=== PATIENT | female | born 1950 | race African-American/Black ===

== ENCOUNTER 2017-03-22 13:39 | Inpatient (IN) | payer OTHER ==
[~2017-03-22] VITALS: Ht 154.9 cm; Wt 52.8 kg
[2017-03-22 14:47] LABS: Basophils # (auto) 0 uL; Basophils % (auto) 0.3 % (0.0-2.0); CONDITION Y; Eosinophils # (auto) 0.1 uL; Eosinophils % (auto) 1.1 % (0.0-7.0); Hematocrit 44.7 % (36.0-46.0); Hemoglobin 15.6 g/dL (12.2-16.2); Lymphocytes # (auto) 4.4 uL; Lymphocytes % (auto) 35.9 % (10.0-50.0); Mean Corpuscular Hemoglobin 30.8 pg (28.0-32.0); Mean Corpuscular Hgb Conc. 34.9 g/dL (32.0-36.0); Mean Corpuscular Volume 88.3 fL (80.0-100.0); Mean Platelet Volume 6.9 fL (7.4-10.4); Monocytes # (auto) 0.9 uL; Monocytes % (auto) 7.2 % (0.0-12.0); Neutrophils # (auto) 6.8 uL; Neutrophils % (auto) 55.5 % (37.0-80.0); Platelet Count (auto) 486 10^3/uL (140-450); Red Cell Distribution Width 14.1 % (11.6-16.0); White Blood Cell 12.2 10^3/uL (4.4-10.8)
[2017-03-22 15:00] LABS: INR 0.9 (0.9-1.15); Partial Thromboplastin Time 25.3 sec (22.64-33.71); Prothrombin Time 9.8 sec (9.37-12.3)
[2017-03-22 15:26] LABS: Albumin 2.9 g/dL (3.4-5.0); BUN/Creatinine Ratio 12.9; Bilirubin, Total 0.3 mg/dL (0.2-1.0); Calcium 8.1 mg/dL (8.5-10.1)
[2017-03-22 15:27] LABS: Potassium 2.7 mmol/L (3.5-5.1)
[2017-03-22] MEDS ORDERED: POTASSIUM CHL 20 Meq TABLET PO ONE (15:30)
[2017-03-22] MEDS ORDERED: SODIUM CHLORIDE 0.9% 1,000 ML IVB ONE (16:51)
[2017-03-22 17:35] LABS: Magnesium 2.3 mg/dL (1.6-2.6)
[2017-03-22] MEDS ORDERED: MORPHINE SULF INJ 2 MG/ML SYRINGE 1ML IV ONE (18:00)
[2017-03-22] MEDS ORDERED: ONDANSETRON HCL 4 MG/2 ML VIAL IV ONE (18:00)
[2017-03-22] MEDS ORDERED: POTASSIUM CHL 20MEQ/100ML 100 ML IV ONE (20:30)
[2017-03-22] MEDS ORDERED: TEMAZEPAM 15 MG CAP PO PRN (22:00)
[2017-03-22] MEDS ORDERED: PANTOPRAZOLE SODIUM 40 MG/10 ML VIAL IV ONE (22:00)
[2017-03-22 22:26] LABS: Hematocrit 39.7 % (36.0-46.0); Hemoglobin 13.5 g/dL (12.2-16.2)
[2017-03-22] MEDS: LABETALOL HCL 200 MG TAB PO SCH (22:30)
[2017-03-22] MEDS: SODIUM CHLORIDE 0.9% 1,000 ML IV SCH (22:30)
[2017-03-22 23:25] VITALS: BP 105/61
[2017-03-23] VITALS (7 sets, daily range): BP systolic 74–113; BP diastolic 41–58
[2017-03-23] MEDS: ONDANSETRON HCL 4 MG/2 ML VIAL IV PRN ×3 (00:36→14:13)
[2017-03-23] MEDS: MORPHINE SULF INJ 2 MG/ML SYRINGE 1ML IV PRN ×3 (00:37→14:13)
[2017-03-23 06:30] LABS: Basophils # (auto) 0 uL; Basophils % (auto) 0.3 % (0.0-2.0); CONDITION Y; Eosinophils # (auto) 0.3 uL; Eosinophils % (auto) 3.2 % (0.0-7.0); Hematocrit 37.6 % (36.0-46.0); Hemoglobin 12.9 g/dL (12.2-16.2); Lymphocytes # (auto) 3.3 uL; Lymphocytes % (auto) 41.2 % (10.0-50.0); Mean Corpuscular Hemoglobin 30.8 pg (28.0-32.0); Mean Corpuscular Hgb Conc. 34.3 g/dL (32.0-36.0); Mean Corpuscular Volume 89.8 fL (80.0-100.0); Monocytes # (auto) 0.9 uL; Monocytes % (auto) 10.7 % (0.0-12.0); Neutrophils # (auto) 3.5 uL; Neutrophils % (auto) 44.6 % (37.0-80.0); Platelet Count (auto) 362 10^3/uL (140-450); Red Cell Distribution Width 14.4 % (11.6-16.0); White Blood Cell 7.9 10^3/uL (4.4-10.8)
[2017-03-23 06:46] LABS: Albumin 2.2 g/dL (3.4-5.0); BUN/Creatinine Ratio 7.2; Calcium 7.7 mg/dL (8.5-10.1)
[2017-03-23 06:49] LABS: Bilirubin, Total 0.7 mg/dL (0.2-1.0); Total Protein 4.7 g/dL (6.4-8.2)
[2017-03-23] MEDS: LABETALOL HCL 200 MG TAB PO SCH (09:35)
[2017-03-23] MEDS: ACETAMINOPHEN 325 MG TAB PO PRN ×2 (09:44→21:56)
[2017-03-23] MEDS: PANTOPRAZOLE 40 MG TAB PO SCH ×2 (10:00→21:56)
[2017-03-23] MEDS ORDERED: HCTZ 25 MG TAB PO SCH (10:00)
[2017-03-23] MEDS ORDERED: PANTOPRAZOLE SODIUM 40 MG/10 ML VIAL IV SCH (10:00)
[2017-03-23] MEDS ORDERED: amLODIPine BESYLATE 5 MG TAB PO SCH (10:00)
[2017-03-23] MEDS ORDERED: HYDR25TA4 PO (10:06)
[2017-03-23 10:26] LABS: Urine RBC None Seen /hpf (0 - 4)
[2017-03-23 10:41] LABS: Urine Bilirubin Negative (Negative); Urine Blood Negative /uL (Negative); Urine Color Yellow (Yellow); Urine Glucose Normal (Normal); Urine Ketone Negative (Negative); Urine Nitrite Negative (Negative); Urine Squamous Epithelial Cell FEW /hpf (<5); Urine Urobilinogen Normal (Negative)
[2017-03-23] MEDS ORDERED: SODIUM CHLORIDE 0.9% 250 ML IV ONE (12:15)
[2017-03-23] MEDS: SODIUM CHLORIDE 0.9% 1,000 ML IV SCH (14:28)
[2017-03-23] MEDS ORDERED: POTASSIUM CHL 20 Meq TABLET PO STA (16:48)
[2017-03-24] VITALS (7 sets, daily range): BP systolic 110–140; BP diastolic 60–92
[2017-03-24] MEDS: SODIUM CHLORIDE 0.9% 1,000 ML IV SCH ×2 (06:32→23:48)
[2017-03-24] MEDS: MORPHINE SULF INJ 2 MG/ML SYRINGE 1ML IV PRN ×2 (06:33→21:44)
[2017-03-24] MEDS ORDERED: diphenhdrAMINE HCL 50 MG/1 ML VL ONE (08:20)
[2017-03-24] MEDS ORDERED: SODIUM CHLORIDE LOCK 10 ML ONE (08:20)
[2017-03-24] MEDS ORDERED: LIDOCAINE VISCOUS 2% 15ML UD ONE (08:20)
[2017-03-24] MEDS: MIDAZOLAM HCL 5 MG/ML-1ML VIAL ONE ×2 (09:33→09:39)
[2017-03-24] MEDS: fentaNYL CITRATE 100 MCG/2 ML VL ONE ×2 (09:33→09:39)
[2017-03-24] MEDS ORDERED: GOLYTELY 4L KIT PO ONE (10:00)
[2017-03-24] MEDS: PANTOPRAZOLE 40 MG TAB PO SCH ×2 (12:31→21:43)
[2017-03-25] MEDS: MORPHINE SULF INJ 2 MG/ML SYRINGE 1ML IV PRN ×2 (03:38→12:15)
[2017-03-25 04:42] VITALS: BP 126/63
[2017-03-25] MEDS ORDERED: diphenhdrAMINE HCL 50 MG/1 ML VL ONE (08:10)
[2017-03-25] MEDS ORDERED: SODIUM CHLORIDE LOCK 10 ML ONE (08:10)
[2017-03-25] MEDS ORDERED: FLUMAZENIL 0.1 MG/ML INJ 10ML MDV IV ONE (08:10)
[2017-03-25] MEDS ORDERED: NALOXONE HCL 0.4 MG/ML VIAL ONE (08:10)
[2017-03-25] MEDS: fentaNYL CITRATE 100 MCG/2 ML VL ONE ×3 (08:38→08:51)
[2017-03-25] MEDS: MIDAZOLAM HCL 5 MG/ML-1ML VIAL ONE ×3 (08:38→08:51)
[2017-03-25 09:00] VITALS: BP 109/68
[2017-03-25] MEDS: PANTOPRAZOLE 40 MG TAB PO SCH ×2 (09:51→21:41)
[2017-03-25 12:34] VITALS: BP 133/75
[2017-03-25] MEDS: SULFASALAZINE 500 MG TAB PO SCH ×3 (12:41→21:41)
[2017-03-25] MEDS: metroNIDAZOLE 500MG/100ML 100 ML IV SCH ×2 (13:42→21:41)
[2017-03-25] MEDS: MORPHINE SULFATE 4 MG/ML SYRG IV PRN ×2 (16:01→22:15)
[2017-03-25] MEDS: SODIUM CHLORIDE 0.9% 1,000 ML IV SCH (16:12)
[2017-03-25 16:49] VITALS: BP 130/74
[2017-03-25 22:36] VITALS: BP 92/46
[2017-03-26 05:20] VITALS: BP 123/78
[2017-03-26 05:37] VITALS: BP 123/65
[2017-03-26] MEDS: SULFASALAZINE 500 MG TAB PO SCH ×2 (06:07→11:56)
[2017-03-26] MEDS: metroNIDAZOLE 500MG/100ML 100 ML IV SCH (06:07)
[2017-03-26] MEDS: PANTOPRAZOLE 40 MG TAB PO SCH (10:24)
[2017-03-26 10:27] VITALS: BP 112/60
[2017-03-26 14:15] VITALS: BP 119/80
== END 2017-03-26 14:40 | disposition home or self-care (01) | DRG 385 ==
LOC: ER 13:39 → OVERFLOW 13:40 → CENTRAL 23:21
PROVIDERS: ADMIT Internal Medicine; ATTEND Internal Medicine Pulmonary Disease
PROC: 0DB78ZX Excision of Stomach, Pylorus, Via Natural or Artificial Opening Endoscopic, Diagnostic (ICD-10-PCS; 2017-03-24)
PROC: 0DBE8ZX Excision of Large Intestine, Via Natural or Artificial Opening Endoscopic, Diagnostic (ICD-10-PCS; principal; 2017-03-25 08:31)
DX: K51.00 Ulcerative (chronic) pancolitis without complications (principal); K29.71 Gastritis, unspecified, with bleeding; E44.1 Mild protein-calorie malnutrition; E44.0 Moderate protein-calorie malnutrition; E87.6 Hypokalemia; K52.3 Indeterminate colitis; I10 Essential (primary) hypertension; D72.829 Elevated white blood cell count, unspecified; K44.9 Diaphragmatic hernia without obstruction or gangrene; F17.210 Nicotine dependence, cigarettes, uncomplicated; K29.60 Other gastritis without bleeding; K52.9 Noninfective gastroenteritis and colitis, unspecified; Z82.49 Family history of ischemic heart disease and other diseases of the circulatory system; Z83.3 Family history of diabetes mellitus; Z90.710 Acquired absence of both cervix and uterus; Z68.22 Body mass index [BMI] 22.0-22.9, adult; Z88.5 Allergy status to narcotic agent; Z90.49 Acquired absence of other specified parts of digestive tract
CPT/HCPCS: 36415; 71010; 74176; 80053; 81001; 82150; 82270; 83690; 83735; 84132; 85014; 85018; 85025; 85610; 85730; 86850; 86900; 86901; 87045; 87493; 87899; 93005; 96361; 96365; 96375; C9113; J2250; J2405; J3480; J3490